=== PATIENT | female | born 1985 ===

== ENCOUNTER 2017-03-15 09:02 | Emergency (ER) | payer MEDICAID ==
[2017-03-15 09:12] VITALS: O2SAT 100
[2017-03-15 09:42] LABS: URINE BILIRUBIN NEGATIVE (NEGATIVE); URINE COLOR Yellow (YELLOW); URINE GLUCOSE (UA) NORMAL (Normal); URINE KETONE NEGATIVE (NEGATIVE)
[2017-03-15 09:43] LABS: RBC URINE < 1 /hpf (0-3); URINE BLOOD NEGATIVE (NEGATIVE); URINE LEUKOCYTE ESTERASE NEG Leu/uL (Negative); URINE PROTEIN NEGATIVE (NEGATIVE); URINE UROBILINOGEN NORMAL mg/dL (0.2-1.0); WBC URINE < 1 /hpf (0-5)
[2017-03-15] MEDS ORDERED: Sodium Chloride 0.9% 1,000 ML IV ONE (10:12)
[2017-03-15] MEDS ORDERED: Sodium Chloride 0.9% 1,000 ML ONE (10:28)
--- NOTE | 2017-03-15 10:32 | C.PDOC ---
History Of Present Illness 31 y/o female presents to ED with c/o lower abdominal pain, which she states radiates to the back, and described as cramping. Patient reports pain is associated with diarrhea. She reports she is having several episodes of non- bloody diarrhea per day, and has diarrhea after she eats. Denies fever, vomiting , dysuria, rash, recent travel. Time Seen by Provider: 03/15/17 09:28 Chief Complaint (Nursing): Abdominal Pain History Per: Patient History/Exam Limitations: no limitations Onset/Duration Of Symptoms: Days Current Symptoms Are (Timing): Still Present Location Of Pain/Discomfort: RLQ, LLQ Radiation Of Pain To:: None Quality Of Discomfort: "Pain" Associated Symptoms: Diarrhea. denies: Fever, Chills, Vomiting, Urinary Symptoms Recent travel outside of the [place]: No Past Medical History Reviewed: Historical Data, Nursing Documentation, Vital Signs Vital Signs: Last Vital Signs Temp 97.9 F 03/15/17 12:26 Pulse 63 03/15/17 12:26 Resp 18 03/15/17 12:26 BP 96/68 L 03/15/17 12:26 Pulse Ox 100 03/15/17 12:26 - Medical History PMH: HTN Family History: States: Unknown Family Hx - Social History Hx Tobacco Use: No Hx Alcohol Use: No Hx Substance Use: No - Immunization History Hx Tetanus Toxoid Vaccination: No Hx Influenza Vaccination: No Review Of Systems Except As Marked, All Systems Reviewed And Found Negative. Constitutional: Negative for: Fever Cardiovascular: Negative for: Chest Pain, Palpitations Respiratory: Negative for: Cough, Shortness of Breath, Wheezing Gastrointestinal: Positive for: Abdominal Pain, Diarrhea. Negative for: Vomiting Skin: Negative for: Rash Neurological: Negative for: Headache, Dizziness Physical Exam - Physical Exam Appears: Non-toxic, No Acute Distress Skin: Normal Color, Warm, Dry Head: Atraumatic, Normacephalic Oral Mucosa: Moist Chest: Symmetrical Cardiovascular: Rhythm Regular Respiratory: Normal Breath Sounds, No Rales, No Rhonchi, No Wheezing Gastrointestinal/Abdominal: Soft, No Tenderness, No Guarding, No Rebound Back: Normal Inspection, No CVA Tenderness Extremity: Normal ROM, Capillary Refill (< 2 sec.) Neurological/Psych: Oriented x3, Normal Speech, Normal Cognition ED Course And Treatment - Laboratory Results Result Diagrams: 03/15/17 10:27 03/15/17 10:27 O2 Sat by Pulse Oximetry: 100 (RA) Pulse Ox Interpretation: Normal Progress Note: Pepcid, Toradol, Zofran, and IVFs. Labs ordered. Disposition - Disposition Referrals: Augusto Lopez MD [Staff Provider] - Disposition: HOME/ ROUTINE Disposition Time: 12:57 Condition: GOOD Additional Instructions: Follow up with the medical doctor within 1-2 days. Return if worsened. Prescriptions: Ciprofloxacin HCl [Cipro] 500 mg PO BID #19 tab Ibuprofen [Motrin] 1 tab PO TID PRN #30 tab PRN Reason: Pain metroNIDAZOLE [Flagyl] 500 mg PO BID #14 tab Instructions: Acute Diarrhea (ED) Forms: [employer] (Thai) - Clinical Impression Clinical Impression: Diarrhea, Abdominal pain - PA / RN HOME CARE / Resident Statement MD/DO has reviewed & agrees with the documentation as recorded. - Scribe Statement The provider has reviewed the documentation as recorded by the Scribe SM All medical record entries made by the Scribe were at my direction and personally dictated by me. I have reviewed the chart and agree that the record accurately reflects my personal performance of the history, physical exam, medical decision making, and the department course for this patient. I have also personally directed, reviewed, and agree with the discharge instructions and disposition.
[2017-03-15 10:37] LABS: BASO % 0.3 % (0.0-2.0); EOS # 0.1 K/uL (0.0-0.7); EOS % 1.8 % (0.0-4.0); HEMATOCRIT 39.4 % (34.0-47.0); LYMPH # 1.8 K/uL (1.0-4.3); LYMPH % 31.8 % (20.0-40.0); MEAN CELL VOLUME 86.3 fL (81.0-99.0); MEAN CORPUSCULAR HGB CONC 33.6 g/dL (33.0-37.0); MEAN PLATELET VOLUME 9.2 fL (7.2-11.7); MONO # 0.4 K/uL (0.0-0.8); MONO % 6.8 % (0.0-10.0); NRBC % 0.1 % (0.0-2.0); RED CELL DISTRIBUTION WIDTH 13.5 % (11.5-14.5); WHITE BLOOD COUNT 5.6 K/uL (4.8-10.8)
[2017-03-15 11:11] LABS: ALB/GLOB RATIO 1.6 (1.0-2.1); ALKALINE PHOSPHATASE 58 U/L (38-126); ALT/SGPT 41 U/L (9-52); AST/SGOT 28 U/L (14-36); BILIRUBIN,TOTAL 0.8 mg/dL (0.2-1.3); BLOOD UREA NITROGEN 10 mg/dL (7-17); CALCIUM 8.3 mg/dl (8.6-10.4); CARBON DIOXIDE 25 mmol/L (22-30); CHLORIDE 103 mmol/L (98-107); GFR AFRICAN-AMERICAN > 60; GLUCOSE,RANDOM 78 mg/dL (65-105); SODIUM 137 mmol/L (132-148); TOTAL PROTEIN 6.5 g/dL (6.3-8.3)
[2017-03-15 12:27] VITALS: RESP 18
[2017-03-15 13:17] VITALS: BP 110/74; PULSE 69; TEMP 97.4
== END 2017-03-15 13:15 | disposition home or self-care (01) ==
LOC: C.ER 09:02
DX: R19.7 Diarrhea, unspecified (principal); R10.30 Lower abdominal pain, unspecified; I10 Essential (primary) hypertension
CPT/HCPCS: 80053; 81001; 83690; 84703; 85025; 96361; 96374; 96375; 99285; J1885; J2405; J7040

== ENCOUNTER 2017-08-12 09:30 | Emergency (ER) | payer SELFPAY ==
[2017-08-12 09:49] VITALS: BMI 31.1
[2017-08-12 09:51] VITALS: O2SAT 100
[2017-08-12] MEDS ORDERED: Naproxen 550 mg Tab PO STA (11:39)
[2017-08-12] MEDS ORDERED: Naproxen 550 mg Tab PO ONE (11:46)
--- NOTE | 2017-08-12 11:46 | C.PDOC ---
History Of Present Illness 31 y/o female presents to ED with complaints of pain and swelling to left pinky toe after hitting toe on furniture 4 days ago. Patient denies numbness, fever, draining, nausea, vomiting or any other complaints at this time. Time Seen by Provider: 08/12/17 10:34 Chief Complaint (Nursing): Lower Extremity Problem/Injury History Per: Patient History/Exam Limitations: no limitations Onset/Duration Of Symptoms: Days Current Symptoms Are (Timing): Still Present Past Medical History Reviewed: Historical Data, Nursing Documentation, Vital Signs Vital Signs: Last Vital Signs Temp 98.2 F 08/12/17 12:04 Pulse 80 08/12/17 12:04 Resp 18 08/12/17 12:04 BP 124/78 08/12/17 12:04 Pulse Ox 100 08/12/17 12:04 - Medical History PMH: HTN Surgical History: No Surg Hx Family History: States: No Known Family Hx - Social History Hx Tobacco Use: No Hx Alcohol Use: No Hx Substance Use: No - Immunization History Hx Tetanus Toxoid Vaccination: No Hx Influenza Vaccination: No Hx Pneumococcal Vaccination: No Review Of Systems Except As Marked, All Systems Reviewed And Found Negative. Musculoskeletal: Positive for: Foot Pain Skin: Negative for: Rash Neurological: Negative for: Weakness, Numbness Physical Exam - Physical Exam Appears: Non-toxic, Other (In mild pain) Skin: Warm, Dry Head: Atraumatic Eye(s): bilateral: Normal Inspection Oral Mucosa: Moist Extremity: Tenderness (left 5th digit tender to palpation ), Capillary Refill (< 2 seconds), No Deformity, Swelling (left 5th digit mildly), Other (Erythema to left 5th digit ) Neurological/Psych: Oriented x3, Normal Speech, Normal Cognition ED Course And Treatment O2 Sat by Pulse Oximetry: 100 (RA) Pulse Ox Interpretation: Normal Progress Note: Naproxen administered. Left 5th digit xray- Questionable chip fracture. No dislocation. Toe taped , pt discharged with f.u to ortho Disposition Counseled Patient/Family Regarding: Diagnosis, Need For Followup - Disposition Referrals: Podiatry Clinic [Outside] Disposition: HOME/ ROUTINE Disposition Time: 11:45 Condition: STABLE Additional Instructions: FOLLOW UP WITH PODIATRY WITHIN 1 WEEK USE MEDICATION FOR PAIN NEEDED ELEVATE FOOT MUCH POSSIBLE RETURN TO ER IF SYMPTOMS WORSEN Prescriptions: Naproxen 375 mg PO BID PRN #20 tablet PRN Reason: pain Instructions: Toe Injury (DC) Forms: [employer] (Albanian), Work Excuse Print Language: AMHARIC - POA Present On Arrival: Falls Or Trauma - Clinical Impression Clinical Impression: Sprain of fifth toe, left - Scribe Statement The provider has reviewed the documentation as recorded by the Scribyesi Billings All medical record entries made by the Nunuibyesi were at my direction and personally dictated by me. I have reviewed the chart and agree that the record accurately reflects my personal performance of the history, physical exam, medical decision making, and the department course for this patient. I have also personally directed, reviewed, and agree with the discharge instructions and disposition.
[2017-08-12 12:04] VITALS: BP 124/78; PULSE 80; RESP 18; TEMP 98.2
--- NOTE | 2017-08-12 14:07 | RAD ---
PROCEDURE: Left foot 08/12/2017 HISTORY: Left toe pain after injury. Rule out fracture. COMPARISON: Made with left foot 12/20/2014 FINDINGS: BONES: There is a small semi lunar shaped osseous density within the soft tissues adjacent to the distal phalanx 5th toe that could represent old posttraumatic mineralization versus tiny avulsion fracture. The remaining osseous structures intact. JOINTS: Normal. SOFT TISSUES: Normal. OTHER FINDINGS: None. IMPRESSION: There is a small semi lunar shaped osseous density within the soft tissues adjacent to the distal phalanx 5th toe that could represent old posttraumatic mineralization versus tiny avulsion fracture. The remaining osseous structures intact.
== END 2017-08-12 12:24 | disposition home or self-care (01) ==
LOC: C.ER 09:30
DX: S93.505A Unspecified sprain of left lesser toe(s), initial encounter (principal); W22.8XXA Striking against or struck by other objects, initial encounter